=== PATIENT | male | born 1950 | race Two or more races ===

== ENCOUNTER 2021-02-17 13:37 | Outpatient (CLI) | payer OTHER | END 2021-02-17 13:53 | disposition home or self-care (01) | LOC: TOM 13:37 | PROVIDERS: ATTEND Internal Medicine | DX: S06.5X9A Traumatic subdural hemorrhage with loss of consciousness of unspecified duration, initial encounter (principal) ==

== ENCOUNTER 2021-08-14 11:00 | Outpatient (CLI) | payer OTHER | END 2021-08-14 11:05 | disposition home or self-care (01) | LOC: RAD 11:00 | PROVIDERS: ATTEND Physical Medicine & Rehabilitation | DX: M25.511 Pain in right shoulder (principal); M25.512 Pain in left shoulder; M54.59 Other low back pain ==